=== PATIENT | male | born 1955 | race Caucasian/White ===

== ENCOUNTER 2020-01-21 12:27 | Day surgery (SDC) | payer BC, MEDICARE ==
[2020-01-21] VITALS (10 sets, daily range): BP systolic 143–162; BP diastolic 82–106; PULSE 67–78; TEMP 97.6
[~2020-01-21] VITALS: Ht 175.4 cm; Wt 87.7 kg
[2020-01-21 13:27] LABS: HEMATOCRIT 47.2 % (42.0-52.0); HEMOGLOBIN 16.2 g/dl (13.5-18.0); MEAN CELL VOLUME 95 fl (80.0-100.0); MEAN CORPUSCULAR HEMOGLOBIN 33 pg (27.0-31.0); MEAN CORPUSCULAR HGB CONC 34 g/dl (33.0-37.0); MEAN PLATELET VOLUME 10.3 fl (7.4-10.4); PLATELET COUNT 223 K/mm3 (130-400); RED BLOOD COUNT 4.97 M/mm3 (4.20-5.60); REDCELL DISTRIBUTION WIDTH-CV 12.2 % (11.5-14.5)
[2020-01-21] MEDS ORDERED: NORVASC 5MG5 MG/TAB PO (13:27)
[2020-01-21] MEDS ORDERED: ASPIRIN E.C. 8181 MG PO (13:28)
[2020-01-21] MEDS ORDERED: LIPITOR20 MG PO (13:28)
[2020-01-21] MEDS ORDERED: COREG 6.256.25 MG/TA PO (13:29)
[2020-01-21] MEDS ORDERED: ALLEGRA-D 12 HO1 TE1 PO (13:29)
[2020-01-21] MEDS ORDERED: LASIX 20MG TABL20 MG PO ×2 (13:30→15:28)
[2020-01-21] MEDS ORDERED: PRINIVIL20 MG PO (13:30)
[2020-01-21 13:36] LABS: PROTHROMBIN TIME 11.3 SECONDS (9.7-12.8)
[2020-01-21 13:38] LABS: PARTIAL THROMBOPLASTIN TIME 30.6 SECONDS (26.0-37.0)
[2020-01-21 13:40] LABS: CALCIUM 10.1 mg/dL (8.4-10.2); CREATININE, serum 1.25 (0.66-1.25); POTASSIUM 4.6 mmol/L (3.4-5.0)
--- NOTE | 2020-01-21 14:27 | NUR ---
SEE MERGE DOCUMENTATION FOR MEDICATION ADMINISTRATION TIMES AND INTRA/POST PROCEDURE SEDATION ASSESSMENTS. RIGHT HAND BARBEAU TEST POSITIVE.
--- NOTE | 2020-01-21 15:47 | NUR ---
Pt returned from procedure,report from Kilo Friedman.
--- NOTE | 2020-01-21 17:30 | NUR ---
Report to Kilo Eid.
--- NOTE | 2020-01-21 19:15 | NUR ---
TR band deflated with no problem, cms remained intact distal, no bleeding or hematoma at puncture site to rt wrist. bandaid applied, followed by mild compression dressing of 2x2 and coban. safeguard dressing deflated at 1830, pt was up and ambulatory with steady gait at 1900, site stayed soft. I changed rt groin dressing as inital dressing was pulled off with safeguard dressing. sterile technique was utilized/ Pt then dressed with no problem. i reviewed dc and fu instructions with pt, he verbalized understanding and denied questions at time of departure. iv dc'd with cath intact, dressing applied. pt was escorted to exit via wheelchair.
== END 2020-01-21 19:15 | disposition home or self-care (01) ==
LOC: COL.CAR 12:27
PROVIDERS: Internal Medicine Cardiovascular Disease
DX: I11.0 Hypertensive heart disease with heart failure (principal); I50.20 Unspecified systolic (congestive) heart failure; I25.10 Atherosclerotic heart disease of native coronary artery without angina pectoris; G47.33 Obstructive sleep apnea (adult) (pediatric); E78.5 Hyperlipidemia, unspecified; Z79.82 Long term (current) use of aspirin
CPT/HCPCS: C1760; C1894; J1644; J1940; J2250; J3010; Q9967